=== PATIENT | female | born 1955 | race Caucasian/White ===

== ENCOUNTER 2017-06-11 12:32 | Inpatient (IN) | payer OTHER ==
[2017-06-11] MEDS ORDERED: fentaNYL Inj 100 MCG/2 ML VIAL IVP ONE (13:08)
[2017-06-11] MEDS ORDERED: Sodium Chloride 0.9% 1,000 ML PRIMARY IV ONE (13:08)
[2017-06-11] MEDS ORDERED: NORMAL SALINE 10 ML SYRINGE FLUSH IVP PRN ×4 (13:08→21:27)
[2017-06-11] MEDS ORDERED: ONDANSETRON 4 MG/2 ML VIAL IVP ONE (13:08)
--- NOTE | 2017-06-11 13:18 | PDOC ---
Abdomen/Flank HPI - General Chief Complaint: Headache Stated Complaint: SEVERE HEADACHE/VOMITING Date Seen by Provider: 06/11/17 Time Seen by Provider: 13:02 - History of Present Illness Initial Comments: This is a very nice 61-year-old woman who just moved to [place] within the last week to live with her best friend. She was from the [facility] and had substantial medical care there. She currently was hospitalized about 2 weeks ago with an episode of nausea and vomiting which she associated to some bad chicken that she ate. She felt that she had gotten better after that episode but then again today started to have substantial nausea and vomiting which she classifies as bilious. She has chronic recurrent migraines feel that she has a migraine currently does not feel that her current headache is any different than her normal migraines. She states that she also feels a little bit of low abdominal pain which is consistent with a previous episode of diverticulitis that she's had. She also states that she had a colonoscopy about 7 years ago had polyps removed at that time was supposed to have a colonoscopy at 5 years and did not she also has noticed a little bit of rectal bleeding over last couple weeks but this was very scant and she has not had any workup in regards to that. She denies any weight loss or night sweats fever or chills she has also had a cholecystectomy and history of hepatitis C that was fully treated. She denies ever having history of small bowel obstructions. She had an upper endoscopy in the past and some sort of esophageal procedure which she calls a "wrap" but denies any sort of Gregorio fundoplication or abdominal procedure. In regards to her headache she has chronic and frequent migraine headache she states this migraine headache is similar to her previous ones she apparently had a head scan of some sort she believes likely an MRI that did show vertebral artery stenosis or limited flow which may be causing some of her headaches though she has never seen a neurologist for this and was told there is nothing that needed to be done at the time she had her scan - Patient Home Medications Home Medications: Home Medications Cetirizine HCl [Zyrtec] 10 mg PO DAILY 01/19/16 Cholecalciferol (Vitamin D3) [Vitamin D3] 1,000 unit PO DAILY 01/19/16 Fluoxetine HCl [Prozac] 40 mg PO DAILY 01/19/16 Fluticasone/Salmeterol [Advair 500-50 Diskus] 1 each IH DAILY 01/19/16 Gabapentin 900 mg PO BID 01/19/16 Ibuprofen [Motrin Tab] 400 mg PO TID PRN 01/19/16 Levothyroxine Sodium [Synthroid Tab] 88 mcg PO DAILY 01/19/16 [place] Carbonate 300 mg PO QID 01/19/16 Sumatriptan [Imitrex] 20 mg NS PRN PRN 01/19/16 Vitamin E 400 unit PO DAILY 01/19/16 Morphine Sulfate [Morphine Sulfate ER] 15 mg PO TID 06/11/17 - Patient Allergies Allergies/Adverse Reactions: Allergies Allergy/AdvReac Type Severity Reaction Status Date / Time No Known Allergies Allergy Verified 06/11/17 13:07 Past Medical History - heen HEENT History: Denies History Cardiovascular History: Hypertension Respiratory History: COPD, Emphysema Gastrointestinal History: GERD Additional Gastrointestinal History: SURGICAL REPAIR OF ESOPHAGUS FROM DAMAGE FROM REFLUX Genitourinary History: Denies History Endocrine History: Hypothyroidism Musculoskeletal History: Arthritis Prosthesis or Implant: No Additional 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 Neurological History: Migraines Blood Disorders: Denies History Psychiatric History: Bi Polar Disorder, Anxiety Disorders Cancer History: Denies History History of MDRO: No Alcohol Use: None Substance Use Type: None Previous Surgical History: Yes Type / Date of Surgery: GB, ESOPHAGEAL WRAP, REMOVAL OF GROWTH ON VOCAL CORDS Anesthesia Reactions: No Significant Family History: No pertinent family hx Past Medical History Reviewed: Reviewed - No Changes ROS Constitution: REPORTS: Denies Symptoms Cardiovascular: REPORTS: Denies Cardiac Symptoms Respiratory: REPORTS: Denies Resp Symptoms Gastrointestinal: REPORTS: Abdominal Pain, Nausea, Vomitting Genitourinary: REPORTS: Denies Symptoms Abdominal/Flank Pain PE - General Appearance General Appearance: POSITIVE: Alert, Cooperative, No Acute Distress - Neck Neck: POSITIVE: Normal Inspection - Respiratory Respiratory: POSITIVE: No Respiratory Distress, Breath Sounds Normal - Cardiovascular Cardiovascular: POSITIVE: Regular Rate and Rhythm, Heart Sounds Normal - Abdomen Additional Abdominal Details: Vague low abdominal tenderness bowel sounds are sluggish but present she has some diffuse tenderness as well. - Back Back: POSITIVE: Normal Inspection - Skin Skin: POSITIVE: Intact - Neurological Neurological: POSITIVE: Affect Apporpriate - Psychological Psychiatric: POSITIVE: Affect Appropriate, Mood Appropriate Abdomen Progress - Results Reviewed by me Xrays/CTs/US Reviewed by me: Yes Lab Results Reviewed: Yes Lab Results:: Laboratory Results 06/11/17 06/11/17 Range/Units 13:08 13:45 WBC 7.41 (4.8-10.8) 10^3/uL RBC 4.99 (4.20-5.40) 10^6/uL Hgb 15.2 (12.0-16.0) g/dL Hct 44.5 (37.0-47.0) % MCV 89.2 (81-99) FL MCH 30.5 (27-31) PG MCHC 34.2 (33-37) g/dL RDW Std Deviation 41.5 (39-50) fL RDW Coeff of Jaci 12.8 (11.5-14.5) % Plt Count 242 (140-350) 10*3/uL MPV 10.1 (7.4-12.2) FL Immature Gran % (Auto) 0.1 (0-5) % Neut % (Auto) 71.3 (50-80) % Lymph % (Auto) 22.8 (10-50) % [place] % (Auto) 5.0 (5-15) % Eos % (Auto) 0.4 (0-8) % Baso % (Auto) 0.4 (0-1) % Immature Gran # (Auto) 0.01 10*3/UL Neut # (Auto) 5.28 10*3/UL Lymph # (Auto) 1.69 10*3/uL [place] # (Auto) 0.37 (0.3-0.8) 10*3/UL Eos # (Auto) 0.03 10*3/UL Baso # (Auto) 0.03 10*3/UL WBC Morphology Comment Normal morphology (NORM) Plt Morphology Comment Normal morphology (NORM) RBC Morph Comment Normal morphology (NORM) Sodium 142 (135-145) meq/L Potassium 3.8 (3.8-5.2) meq/L Chloride 106 (98-112) meq/L Carbon Dioxide 24 (23-33) meq/L Anion Gap 12 (5-20) BUN 13 (7-22) mg/dL Creatinine 0.7 (0.50-1.20) mg/dL Estimated GFR > 60 (>60 ml/min/1.73m(2)) BUN/Creatinine Ratio 18.57 (6-20) Glucose 122 H (78-110) mg/dL Calculated Osmolality 294.0 H (267-292) mOsm/kg Calcium 9.4 (8.7-10.7) mg/dL Total Bilirubin 0.5 (0.3-1.2) mg/dL AST 29 (8-39) IU/L ALT 72 H (9-52) IU/L Alkaline Phosphatase 78 (38-126) IU/L Total Protein 7.6 (6.1-8.0) g/dL Albumin 4.4 (3.5-4.8) g/dL Globulin 3.2 (2.50-4.10) g/dL Albumin/Globulin Ratio 1.30 (1.3-2.0) mg/g Triglycerides 155 (44-200) mg/dL Lipase 657 H (23-300) IU/L Ur Collection Type Clean catch urine Urine Color Yellow Urine Clarity Turbid (CLEAR) Urine pH 5.5 (5.0-8.5) Ur Specific [place] 1.025 (1.005-1.030) Urine Protein Negative (NEG) mg/dl Urine Glucose (UA) Negative (NEG) mg/dL Urine Ketones Negative (NEG) Urine Occult Blood Small H (NEG) Urine Nitrate Negative (NEG) Urine Bilirubin Negative (NEG) Urine Urobilinogen 0.2 (0.2) EU/dL Ur Leukocyte Esterase Trace (NEG) Urine RBC 0 (NONE) /hpf Urine WBC 0-2 (NONE) Ur Squamous Epith Cells Few (NONE) Ur Renal Epithelial Cell None (NONE) Urine Crystals Many Urine Bacteria Moderate (NONE) Urine Casts None (NONE) Urine Mucus None (NONE) Urine Trichomonas None (NONE) Urine Yeast None (NONE) Ur Culture Indicated? Culture not set - Patient's Progress MDM / ED Course: Patient's labs show an elevated lipase and a mildly elevated ALTs. Her abdominal films show stool throughout most of the colon in size constipation no air-fluid levels or dilated bowel or free air or other concerning features. Ultimately her exam with epigastric pain and elevated lipase is concerning for pancreatitis. I've discussed her case with hospitalist who is agreed to admit her to the hospital. We'll make her nothing by mouth give her pain medication as needed and obtain CT scan of her abdomen and pelvis to evaluate her pancreatitis for complications or other sources of problem. Patient Care Time - Estimated PCT Patient Care Time (In Minutes): 40 Vital Signs - Recent Vital Signs Vital Signs: Vital Signs (Last 8 hours) Temp Pulse Resp BP Pulse Ox 06/11/17 12:32 96.3 F L 96 22 124/80 92 - VS Reviewed Vital Signs Reviewed: Yes (vitals are currently good) Discharge Clinical Impression: Pancreatitis, acute Qualifiers: Pancreatitis type: other Acute pancreatitis complication: unspecified Qualifier Code: (K85.80) Other acute pancreatitis without necrosis or infection Constipation Qualifiers: Constipation type: other constipation type Qualifier Code: (K59.09) Other constipation Discharge Disposition: Admit to Inpatient Condition: Stable Date Decision to Admit to Inpatient: 06/11/17 Time Decision to Admit to Inpatient: 15:10
[2017-06-11 13:56] LABS: BASOPHILS % (AUTO) 0.4 % (0-1); EOSINOPHILS # (AUTO) 0.03 10*3/UL; EOSINOPHILS % (AUTO) 0.4 % (0-8); HEMATOCRIT 44.5 % (37.0-47.0); HEMOGLOBIN 15.2 g/dL (12.0-16.0); LYMPHOCYTES # (AUTO) 1.69 10*3/uL; MEAN CORPUSCULAR HEMOGLOBIN 30.5 PG (27-31); MEAN CORPUSCULAR HGB CONC 34.2 g/dL (33-37); MEAN CORPUSCULAR VOLUME 89.2 FL (81-99); MEAN PLATELET VOLUME 10.1 FL (7.4-12.2); MONOCYTES # (AUTO) 0.37 10*3/UL (0.3-0.8); NEUTROPHILS # (AUTO) 5.28 10*3/UL; NEUTROPHILS % (AUTO) 71.3 % (50-80); RED BLOOD COUNT 4.99 10^6/uL (4.20-5.40)
[2017-06-11 13:57] LABS: BASOPHILS # (AUTO) 0.03 10*3/UL; PLATELET MORPHOLOGY COMMENT NORMAL MORPHOLOGY (NORM); RBC MORPHOLOGY COMMENT NORMAL MORPHOLOGY (NORM); WBC MORPHOLOGY COMMENT NORMAL MORPHOLOGY (NORM)
[2017-06-11 14:00] LABS: BLOOD UREA NITROGEN 13 mg/dL (7-22); BUN/CREATININE RATIO 18.57 (6-20); CALCIUM 9.4 mg/dL (8.7-10.7); EST GLOMERULAR FILTRATION > 60 (>60 ml/min/1.73m(2)); SERUM ALBUMIN 4.4 g/dL (3.5-4.8)
[2017-06-11 14:07] LABS: CLARITY,URINE TURBID (CLEAR); COLOR,URINE YELLOW; GLUCOSE, URINE (UA) NEGATIVE (NEG); PH,URINE 5.5 (5.0-8.5); PROTEIN,URINE NEGATIVE (NEG); URINE SAMPLE TYPE CLEAN CATCH URINE
[2017-06-11 14:08] LABS: BACTERIA,URINE MODERATE; BILIRUBIN,URINE NEGATIVE (NEG); NITRATE,URINE NEGATIVE (NEG); OCCULT BLOOD,URINE SMALL (NEG); RBC,URINE 0 /hpf; SQUAMOUS EPITHELIAL CELL,UR FEW; URINE CRYSTALS MANY; UROBILINOGEN,URINE 0.2 EU/dL (0.2); WBC,URINE 0-2
[2017-06-11] MEDS: Lactated Ringers 1,000 ML PRIMARY IV ONE ×2 (15:57→19:20)
[2017-06-11] MEDS ORDERED: ONDANSETRON 4 MG/2 ML VIAL IVP PRN (16:24)
[2017-06-11] MEDS ORDERED: MORPHINE SULFATE 4 MG/1 ML IVP PRN (16:24)
--- NOTE | 2017-06-11 17:20 | DI ---
CT ABD W/CN AND PELVIS W/CN,06/11/2017 3:03 PM: Clinical History: Abdominal pain and elevated lipase. Previous Exam: None at this facility. Findings: Multiple helically acquired CT images are obtained through the abdomen and pelvis following the intra venous administration of 75 cc of Isovue 300, and demonstrate clear lung bases. The liver, spleen, adrenals, kidneys and pancreas are unremarkable. The patient is status post cholecystectomy. There is a normal appendix. There is no mesenteric or retroperitoneal lymphadenopathy. There is no ev idence of pseudocyst or abscess in the region of the pancreas. Impression: No acute intra-abdominal pathology.
[2017-06-11] MEDS ORDERED: LORazepam 2 MG/1 ML VIAL IVP ONE (18:00)
[2017-06-11] MEDS ORDERED: DEXAMETHASONE PF 10 MG/1 ML VIAL IV ONE (18:00)
[2017-06-11] MEDS ORDERED: Magnesium Sulfate 2gm (Premix) 2 GM in Premix 1 BAG IV ONE (18:00)
[2017-06-11] MEDS ORDERED: diphenhydrAMINE 50 MG/1 ML VIAL IVP ONE (18:00)
[2017-06-11] MEDS ORDERED: Prochlorperazine Edisylate Inj 5 MG in Sodium Chloride 0.9% 500 ML IV ONE (18:00)
[2017-06-11] MEDS ORDERED: KETOROLAC 15 MG/1 ML VIAL IVP ONE (18:00)
[2017-06-11] MEDS ORDERED: NICOTINE 21 MG /DAY PATCH TRANSDERM SCH (19:00)
[2017-06-11] MEDS ORDERED: Prochlorperazine Edisylate Inj 10mg/2ml vial ONE (19:12)
[2017-06-11] MEDS: Sodium Chloride 0.9% 1,000 ML PRIMARY IV SCH ×2 (19:30→20:46)
[2017-06-11] MEDS ORDERED: Prochlorperazine Edisylate Inj 10mg/2ml vial IVP ONE (20:49)
[2017-06-11] MEDS ORDERED: SUMATRIPTAN NS PRN (21:23)
[2017-06-11] MEDS ORDERED: CALCIUM CARBONATE 500 MG (TUMS) CHEWABLE TABLET PO PRN (21:27)
[2017-06-11] MEDS ORDERED: LIDOCAINE W/ SODIUM BICARB 0.5 ML SYR SUBD PRN (21:27)
[2017-06-11] MEDS ORDERED: ACETAMINOPHEN 325 MG TABLET PO PRN (21:27)
--- NOTE | 2017-06-11 21:43 | PDOC ---
History and Physical - History of Present Illness Date and Time of Service: 06/11/2017, 2139 Chief Complaint: Nausea and vomiting and headache History of Present Illness: This very pleasant 61-year-old female that states she recently moved here from [place], although I do see she was here in 2016 with a couple of emergency room visits in January of that year. That being stated, the patient came in complaining of nausea and vomiting of acute onset last night. She stated she had similar symptoms 2 weeks ago and attributed these symptoms to a migraine headache. She states that she thinks she had this time and she developed a headache. She did not have any abdominal pain, but her lipase was found to be elevated. She was admitted with the thought of either migraine headache or pancreatitis and I'm seeing her at this time for admission. The patient states that she's had about a 10 year history of migraine headaches but describes this as "the worst headache of my life". She denied any trauma. She denied any recent alcohol use and states she had a beer or sometime in the last week and that is all. She states that she is normally on Imitrex and pain medications for her migraines and no seem to control her headaches fairly well. With the intractable nausea and vomiting and headache, she came in for evaluation. Again as mentioned, the lipase was elevated and the patient had a CT scan of the abdomen and pelvis that was negative for pancreatitis. She states she feels much better after anti-medics and IV fluids here today. She also did receive a dose of Toradol. There were no other exacerbating factors. She does states she is hungry and she would like to eat. The patient does note that 2 weeks ago or so her morphine was adjusted by her pain medication doctor and it is not clear whether that caused the nausea or vomiting to worsen. Past Medical History Medical History: 1. Migraine headaches 10 years. 2. Colon polyps with colonoscopy last done around 7 years ago per history. 3. Bipolar disorder/ personality disorder/anxiety disorder. 4. Tobacco abuse. 5. COPD with no oxygen dependency. 6. Hypothyroidism. 7. Chronic pain syndrome with fibromyalgia. Surgical History: 1. Appendectomy. 2. Benign vocal cord tumor removed. 3. Benign skin lesions on back removed. 4. Colonoscopy as mentioned about 7 years ago positive for polyps. 5. Probable Gregorio fundoplication as she states she had a "wrap" for her stomach Pertinent Family History: She states her family history is significant for colon cancer in her father as well as myocardial infarctions and diabetes in his situation as well. Past Social History: The patient smokes daily, drinks sparingly, is on disability. She has 3 children that are described as healthy. She states she recently moved to the [facility] from [place]. Tobacco Use: Current Every Day Smoker Substance Use Type: None Alcohol Use: Rarely Medication / Allergies Home Medications: Home Medications Medication Instructions Recorded Confirmed Type Cetirizine HCl [Zyrtec] 10 mg PO DAILY 01/19/16 06/11/17 History Cholecalciferol (Vitamin D3) 1,000 unit PO DAILY 01/19/16 06/11/17 History [Vitamin D3] Fluoxetine HCl [Prozac] 40 mg PO DAILY 01/19/16 06/11/17 History Fluticasone/Salmeterol [Advair 1 each IH DAILY 01/19/16 06/11/17 History 500-50 Diskus] Gabapentin 900 mg PO BID 01/19/16 06/11/17 History Ibuprofen [Motrin Tab] 400 mg PO TID PRN 01/19/16 06/11/17 History Levothyroxine Sodium [Synthroid 88 mcg PO DAILY 01/19/16 06/11/17 History Tab] [place] Carbonate 300 mg PO QID 01/19/16 06/11/17 History Sumatriptan [Imitrex] 20 mg NS PRN PRN 01/19/16 06/11/17 History Vitamin E 400 unit PO DAILY 01/19/16 06/11/17 History Morphine Sulfate [Morphine Sulfate 15 mg PO TID 06/11/17 06/11/17 History ER] Allergies/Adverse Reactions: Allergies Allergy/AdvReac Type Severity Reaction Status Date / Time pregabalin [From Lyrica] AdvReac NOT Verified 06/11/17 19:59 APPLICABLE Review of Systems - Review of Systems All Systems: Reviewed & No Additional Complaints Except as Stated (I did a 12 point review systems and it was negative except as stated below or as per history of present illness:) - Respiratory Respiratory: DENIES: Negative System Review, Cough, Sputum, Dyspnea At Rest, Dyspnea with Exertion, Pleuritic Pain, Hemoptysis, Wheezing, Other, See HPI - Cardiovascular Cardiovascular: DENIES: Negative System Review, Chest Pain, Edema, Syncope, Palpitations, Orthopnea, Paroxysmal Nocturnal Dyspnea, Other, See HPI - Gastrointestinal Gastrointestinal / Abdominal: REPORTS: Other (Awaiting repeat colonoscopy arrangements. Does not have a primary care doctor here in town.), See HPI - Musculoskeletal Musculoskeletal: REPORTS: Joint Pain - Shoulders (Right shoulder), Other ( Random joint tenderness) - Neurological Neurologic: REPORTS: Headache, Other (Migraine headaches, chronic) - Psychiatric Psychiatric: REPORTS: Other (Denies suicidal ideation or homicidal ideation.) Exam - Vitals Vital Signs: Vital Signs Temperature 97.7 F Temperature Source Temporal Artery Scan Pulse Rate [Pulse Oximeter] 83 Pulse Rate 88 Respiratory Rate 16 Blood Pressure [Left Arm] 140/69 Blood Pressure 130/86 Pulse Ox 96 Oxygen Delivery Method Room Air Height 5 ft 3 in Weight 155 lb 3.2 oz - General General Appearance: POSITIVE: No Acute Distress, Cooperative - Head Head Exam: POSITIVE: Normal Inspection, Normocephalic, Atraumatic - Eye Eye Exam: POSITIVE: No Scleral Icterus - ENT ENT Exam: POSITIVE: Mucous Membranes Moist Additonal ENT Exam Details: No dentition. - Neck Neck Exam: POSITIVE: Normal Inspection, No Tenderness, No Thyromegaly - Respiratory Respiratory Exam: POSITIVE: Clear to Auscultation - Bilaterally, Breathing Non Labored, Normal to Percussion and Palpation - Cardiovascular Cardiovascular Exam: POSITIVE: RRR, No Murmur, No Clicks, No Gallops, No Rubs, No JVD - GI/Abdominal GI/Abdominal Exam: POSITIVE: Normal Bowel Sounds, Non Tender, Non Distended, Soft - Rectal Rectal Exam: POSITIVE: Deferred - External Exam: POSITIVE: Deferred Exam: POSITIVE: Deferred - Extremities Extremities Exam: POSITIVE: Full ROM, No Clubbing Present, No Edema Present, No Cyanosis Present - Back Back Exam: POSITIVE: Normal Inspection, No CVA Tenderness - Neurological Neurological Exam: POSITIVE: Alert, Oriented x 3, No Facial Droop, Speech Intact / Clear, Moves All Extremities Equally - Psychiatric Psychiatric Exam: POSITIVE: Normal Affect, Normal Mood - Integumentary Integumentary Exam: POSITIVE: Normal Color, Warm, Dry, Intact Results - Labs CBC and BMP: 06/11/17 13:45 06/11/17 13:45 Labs - Last 24 Hours: Laboratory Results 07/26/17 07/26/17 Range/Units 13:08 13:45 WBC 7.41 (4.8-10.8) 10^3/uL RBC 4.99 (4.20-5.40) 10^6/uL Hgb 15.2 (12.0-16.0) g/dL Hct 44.5 (37.0-47.0) % MCV 89.2 (81-99) FL MCH 30.5 (27-31) PG MCHC 34.2 (33-37) g/dL RDW Std Deviation 41.5 (39-50) fL RDW Coeff of Jaci 12.8 (11.5-14.5) % Plt Count 242 (140-350) 10*3/uL MPV 10.1 (7.4-12.2) FL Immature Gran % (Auto) 0.1 (0-5) % Neut % (Auto) 71.3 (50-80) % Lymph % (Auto) 22.8 (10-50) % [place] % (Auto) 5.0 (5-15) % Eos % (Auto) 0.4 (0-8) % Baso % (Auto) 0.4 (0-1) % Immature Gran # (Auto) 0.01 10*3/UL Neut # (Auto) 5.28 10*3/UL Lymph # (Auto) 1.69 10*3/uL [place] # (Auto) 0.37 (0.3-0.8) 10*3/UL Eos # (Auto) 0.03 10*3/UL Baso # (Auto) 0.03 10*3/UL WBC Morphology Comment Normal morphology (NORM) Plt Morphology Comment Normal morphology (NORM) RBC Morph Comment Normal morphology (NORM) Sodium 142 (135-145) meq/L Potassium 3.8 (3.8-5.2) meq/L Chloride 106 (98-112) meq/L Carbon Dioxide 24 (23-33) meq/L Anion Gap 12 (5-20) BUN 13 (7-22) mg/dL Creatinine 0.7 (0.50-1.20) mg/dL Estimated GFR > 60 (>60 ml/min/1.73m(2)) BUN/Creatinine Ratio 18.57 (6-20) Glucose 122 H (78-110) mg/dL Calculated Osmolality 294.0 H (267-292) mOsm/kg Calcium 9.4 (8.7-10.7) mg/dL Magnesium 1.8 (1.6-2.4) mg/dL Total Bilirubin 0.5 (0.3-1.2) mg/dL GGT 83 H (8-78) IU/L AST 29 (8-39) IU/L ALT 72 H (9-52) IU/L Alkaline Phosphatase 78 (38-126) IU/L Total Protein 7.6 (6.1-8.0) g/dL Albumin 4.4 (3.5-4.8) g/dL Globulin 3.2 (2.50-4.10) g/dL Albumin/Globulin Ratio 1.30 (1.3-2.0) mg/g Triglycerides 155 (44-200) mg/dL Lipase 657 H (23-300) IU/L Ur Collection Type Clean catch urine Urine Color Yellow Urine Clarity Turbid (CLEAR) Urine pH 5.5 (5.0-8.5) Ur Specific [place] 1.025 (1.005-1.030) Urine Protein Negative (NEG) mg/dl Urine Glucose (UA) Negative (NEG) mg/dL Urine Ketones Negative (NEG) Urine Occult Blood Small H (NEG) Urine Nitrate Negative (NEG) Urine Bilirubin Negative (NEG) Urine Urobilinogen 0.2 (0.2) EU/dL Ur Leukocyte Esterase Trace (NEG) Urine RBC 0 (NONE) /hpf Urine WBC 0-2 (NONE) Ur Squamous Epith Cells Few (NONE) Ur Renal Epithelial Cell None (NONE) Urine Crystals Many Urine Bacteria Moderate (NONE) Urine Casts None (NONE) Urine Mucus None (NONE) Urine Trichomonas None (NONE) Urine Yeast None (NONE) Ur Culture Indicated? Culture not set Serum Alcohol < 10 (0-10) mg/dL - Imaging Status: Image Reviewed by Me (Acute abdominal series is significant for stool throughout the colon and chest x-ray is negative for any pneumonia. It is consistent with COPD. I personally reviewed these images. Abdominal CT scan was read as normal by the radiologist.) Assessment and Plan - Patient Problems (1) Migraine Current Visit: Yes Status: Acute (2) Chronic pain syndrome Current Visit: Yes Status: Chronic (3) Fibromyalgia Current Visit: Yes Status: Chronic (4) COPD (chronic obstructive pulmonary disease) Current Visit: Yes Status: Chronic Qualifiers: COPD type: emphysema Emphysema type: panlobular Qualified Description: Panlobular emphysema Qualifier Code(s): (J43.1) Panlobular emphysema (5) Hypothyroidism Current Visit: Yes Status: Acute Qualifiers: Hypothyroidism type: acquired Qualified Description: Acquired hypothyroidism Qualifier Code(s): (E03.9) Hypothyroidism, unspecified - Assessment / Plan Additional Assessment/Plan Details: I'll admit the patient for observation. Antiemetics, IV fluids, sumatriptan, and pain medications will be written for. Start clear liquid diet and advanced as tolerated to regular diet by morning. Check labs in a.m. Overall, I think the lipase is probably elevated in the setting of dehydration. I will go ahead and check a head CT scan given the complaint of worst headache of life. It is reassuring in that sense to know that the patient is a chronic migraines. I read through the emergency room documentation and the patient may have had a prior MRI scan was some sort of stenosis documented although I don't much about that. Symptomatically, the patient has nothing to suggest stroke or TIA or other diagnosis that would warrant further imaging. Lifestyle education and tobacco cessation education will be administered as patient would likely benefit from quitting smoking given her stated history. Patient will need help decision to primary care doctor and will need follow-up with either Dr. Aniket Vance for a colonoscopy consideration. At arrange a consultation as an outpatient. I discussed above plan with the patient and she agreed.
[2017-06-11] MEDS: GABAPENTIN 300 MG CAPSULE PO SCH (23:50)
[2017-06-11] MEDS: CHOLECALCIFEROL 1000 IU TABLET PO SCH (23:50)
[2017-06-11] MEDS: MORPHINE SULFATE 15 MG PO SCH (23:50)
--- NOTE | 2017-06-12 02:01 | DI ---
HISTORY: Severe migraine headache. COMPARISON: None available. TECHNIQUE: A noncontrast CT was performed. FINDINGS: There is no midline shift or mass effect. The CSF spaces to include the ventricles, ciste rns and cerebral sulci are normal in size and shape and are age appropriate. There are no pathologic fluid collections or evidence of acute intracranial hemorrhage. The sun-white differentiation is preserved without CT findings to suggest a transcortical infarction . No calvarial fractures are seen. There is mild sphenoid sinus disease. No significant mastoid air c ell fluid. The imaged soft tissues of the neck and orbits are unremarkable. IMPRESSION: 1. No acute intracranial hemorrhage, midline shift or mass effect.
[2017-06-12] MEDS: Sodium Chloride 0.9% 1,000 ML PRIMARY IV SCH ×2 (05:12→14:28)
[2017-06-12] MEDS ORDERED: LEVOTHYROXINE 88 MCG TABLET PO SCH (05:30)
[2017-06-12 06:36] VITALS: RESP 18
[2017-06-12 06:46] LABS: FREE T4 (FREE THYROXINE) 0.89 ng/dL (0.93-1.71)
[2017-06-12 07:00] LABS: HEMATOCRIT 42.1 % (37.0-47.0); HEMOGLOBIN 13.9 g/dL (12.0-16.0); MEAN CORPUSCULAR VOLUME 90.9 FL (81-99); RED BLOOD COUNT 4.63 10^6/uL (4.20-5.40)
[2017-06-12 07:01] LABS: BASOPHILS # (AUTO) 0 10*3/UL; BASOPHILS % (AUTO) 0 % (0-1); EOSINOPHILS # (AUTO) 0 10*3/UL; EOSINOPHILS % (AUTO) 0 % (0-8); LYMPHOCYTES # (AUTO) 1.08 10*3/uL; MEAN PLATELET VOLUME 10.3 FL (7.4-12.2); MONOCYTES # (AUTO) 0.08 10*3/UL (0.3-0.8); NEUTROPHILS # (AUTO) 6.65 10*3/UL; NEUTROPHILS % (AUTO) 84.9 % (50-80); PLATELET MORPHOLOGY COMMENT NORMAL MORPHOLOGY (NORM); RBC MORPHOLOGY COMMENT NORMAL MORPHOLOGY (NORM); WBC MORPHOLOGY COMMENT SEE COMMENTS (NORM)
[2017-06-12] MEDS ORDERED: FLUoxetine 20 MG CAPSULE PO SCH (09:00)
[2017-06-12] MEDS ORDERED: FLUTICASONE/SALMETEROL 500/50 UD INHALER INH SCH ×3 (09:00→19:00)
[2017-06-12] MEDS: LITHIUM CARBONATE 300 MG CAPSULE PO SCH ×2 (09:52→12:55)
[2017-06-12] MEDS: CHOLECALCIFEROL 1000 IU TABLET PO SCH (09:52)
[2017-06-12] MEDS: GABAPENTIN 300 MG CAPSULE PO SCH (09:52)
[2017-06-12] MEDS: MORPHINE SULFATE 15 MG PO SCH (09:58)
[2017-06-12 12:51] VITALS: TEMP 97.8
[2017-06-12] MEDS ORDERED: MORPHINE SULFATE 15 MG PO SCH (14:00)
--- NOTE | 2017-06-12 14:44 | DCSUMMARY ---
Hospitalization Summary Admit Date: 06/11/17 Discharge Date: 06/12/17 Primary Diagnosis:: migraine headache with nausea and vomiting Hospital Course: This very pleasant 61-year-old female came in with nausea and vomiting over the day and half or so and was admitted on the presumption that she could have underlying pancreatitis versus migraine headaches. She had an elevated lipase, and overall I think that was probably related to dehydration in the setting of vomiting. Her lipase was normal today. Her headache has resolved. She is ready to go home. She denies any shortness of breath. She states that she is going to work on quitting smoking. She has no nausea or vomiting today. Assessment and Plan: 1. As per discharge assessments noted 2. Disposition: Patient is discharged home. 3. Condition on discharge, stable and improved. 4. Diet: regular diet 5. Activities: resume normal activities, but quit smoking 6. Follow-Up: 1. Follow-up with Dr. Henley has been arranged 2. Follow-up with Dr. Vance for screening colonoscopy. 7. Medications at the Time of Discharge: Home Medications Medication Instructions Recorded Confirmed Type Cetirizine HCl [Zyrtec] 10 mg PO DAILY 01/19/16 06/11/17 History Cholecalciferol (Vitamin D3) 1,000 unit PO DAILY 01/19/16 06/11/17 History [Vitamin D3] Fluoxetine HCl [Prozac] 40 mg PO DAILY 01/19/16 06/11/17 History Fluticasone/Salmeterol [Advair 1 each IH DAILY 01/19/16 06/11/17 History 500-50 Diskus] Gabapentin 900 mg PO BID 01/19/16 06/11/17 History Ibuprofen [Motrin] 400 mg PO TID PRN 01/19/16 06/11/17 History Levothyroxine Sodium [Synthroid] 88 mcg PO DAILY 01/19/16 06/11/17 History Baylis Carbonate 300 mg PO QID 01/19/16 06/11/17 History Sumatriptan [Imitrex] 20 mg NS PRN PRN 01/19/16 06/11/17 History Vitamin E 400 unit PO DAILY 01/19/16 06/11/17 History Morphine Sulfate [Morphine Sulfate 15 mg PO TID 06/11/17 06/11/17 History ER] The patient should take 81 mg of aspirin daily. 8. Time, care, counseling and coordination of care for this discharge is greater than 30 minutes. Exam - Vitals Vital Signs: Vital Signs Temperature 97.8 F Temperature Source Temporal Artery Scan Pulse Rate [Pulse Oximeter] 114 Pulse Rate 88 Respiratory Rate 18 Blood Pressure [Left Arm] 115/72 Blood Pressure 130/86 Pulse Ox 92 Oxygen Flow Rate 2 Oxygen Delivery Method Room Air Height 5 ft 3 in Weight 155 lb 3.2 oz - General General Appearance: POSITIVE: No Acute Distress, Cooperative - Eye Eye Exam: POSITIVE: No Scleral Icterus - Respiratory Respiratory Exam: POSITIVE: Clear to Auscultation - Bilaterally, Breathing Non Labored - Cardiovascular Cardiovascular Exam: POSITIVE: RRR, No Murmur, No Clicks, No Gallops, No Rubs, No JVD - GI/Abdominal GI/Abdominal Exam: POSITIVE: Normal Bowel Sounds, Non Tender, Non Distended, Soft - Extremities Extremities Exam: POSITIVE: No Edema Present, No Cyanosis Present - Neurological Neurological Exam: POSITIVE: Alert, Oriented x 3, No Facial Droop, Speech Intact / Clear, Moves All Extremities Equally Data Perinent Studies: Laboratory Results 06/11/17 06/11/17 06/12/17 Range/Units 13:08 13:45 06:01 WBC 7.41 7.83 (4.8-10.8) 10^3/uL RBC 4.99 4.63 (4.20-5.40) 10^6/uL Hgb 15.2 13.9 (12.0-16.0) g/dL Hct 44.5 42.1 (37.0-47.0) % MCV 89.2 90.9 (81-99) FL MCH 30.5 30.0 (27-31) PG MCHC 34.2 33.0 (33-37) g/dL RDW Std Deviation 41.5 41.7 (39-50) fL RDW Coeff of Jaci 12.8 12.7 (11.5-14.5) % Plt Count 242 209 (140-350) 10*3/uL MPV 10.1 10.3 (7.4-12.2) FL Immature Gran % (Auto) 0.1 0.3 (0-5) % Neut % (Auto) 71.3 84.9 H (50-80) % Lymph % (Auto) 22.8 13.8 (10-50) % [place] % (Auto) 5.0 1.0 L (5-15) % Eos % (Auto) 0.4 0 (0-8) % Baso % (Auto) 0.4 0 (0-1) % Immature Gran # (Auto) 0.01 0.02 10*3/UL Neut # (Auto) 5.28 6.65 10*3/UL Lymph # (Auto) 1.69 1.08 10*3/uL [place] # (Auto) 0.37 0.08 L (0.3-0.8) 10*3/UL Eos # (Auto) 0.03 0 10*3/UL Baso # (Auto) 0.03 0 10*3/UL WBC Morphology Comment Normal morphology See comments (NORM) Plt Morphology Comment Normal morphology Normal morphology (NORM) RBC Morph Comment Normal morphology Normal morphology (NORM) Sodium 142 (135-145) meq/L Potassium 3.8 (3.8-5.2) meq/L Chloride 106 (98-112) meq/L Carbon Dioxide 24 (23-33) meq/L Anion Gap 12 (5-20) BUN 13 (7-22) mg/dL Creatinine 0.7 (0.50-1.20) mg/dL Estimated GFR > 60 (>60 ml/min/1.73m(2)) BUN/Creatinine Ratio 18.57 (6-20) Glucose 122 H (78-110) mg/dL Calculated Osmolality 294.0 H (267-292) mOsm/kg Calcium 9.4 (8.7-10.7) mg/dL Magnesium 1.8 (1.6-2.4) mg/dL Total Bilirubin 0.5 (0.3-1.2) mg/dL GGT 83 H (8-78) IU/L AST 29 (8-39) IU/L ALT 72 H (9-52) IU/L Alkaline Phosphatase 78 (38-126) IU/L Total Protein 7.6 (6.1-8.0) g/dL Albumin 4.4 (3.5-4.8) g/dL Globulin 3.2 (2.50-4.10) g/dL Albumin/Globulin Ratio 1.30 (1.3-2.0) mg/g Triglycerides 155 (44-200) mg/dL Lipase 657 H 90 (23-300) IU/L TSH 1.85 (0.2700-4.2000) uIU/mL Free T4 0.89 L (0.93-1.71) ng/dL Ur Collection Type Clean catch urine Urine Color Yellow Urine Clarity Turbid (CLEAR) Urine pH 5.5 (5.0-8.5) Ur Specific [place] 1.025 (1.005-1.030) Urine Protein Negative (NEG) mg/dl Urine Glucose (UA) Negative (NEG) mg/dL Urine Ketones Negative (NEG) Urine Occult Blood Small H (NEG) Urine Nitrate Negative (NEG) Urine Bilirubin Negative (NEG) Urine Urobilinogen 0.2 (0.2) EU/dL Ur Leukocyte Esterase Trace (NEG) Urine RBC 0 (NONE) /hpf Urine WBC 0-2 (NONE) Ur Squamous Epith Cells Few (NONE) Ur Renal Epithelial Cell None (NONE) Urine Crystals Many Urine Bacteria Moderate (NONE) Urine Casts None (NONE) Urine Mucus None (NONE) Urine Trichomonas None (NONE) Urine Yeast None (NONE) Ur Culture Indicated? Culture not set Serum Alcohol < 10 (0-10) mg/dL Patient Problems - Patient Problem List (1) Migraine Current Visit: Yes Status: Resolved (2) Chronic pain syndrome Current Visit: Yes Status: Chronic (3) Fibromyalgia Current Visit: Yes Status: Chronic (4) COPD (chronic obstructive pulmonary disease) Current Visit: Yes Status: Chronic Qualifiers: COPD type: emphysema Emphysema type: panlobular Qualified Description: Panlobular emphysema Qualifier Code(s): (J43.1) Panlobular emphysema (5) Hypothyroidism Current Visit: Yes Status: Acute Qualifiers: Hypothyroidism type: acquired Qualified Description: Acquired hypothyroidism Qualifier Code(s): (E03.9) Hypothyroidism, unspecified
--- NOTE | 2017-06-20 10:22 | DI ---
XR ABDOMEN ACUTE 2/ABD 1/CXR,06/11/2017 1:08 PM: Clinical History: Persistent vomiting. Previous Exam: None at this facility. Findings: The lungs are clear. There is no subdiaphragmatic free air. A nonobstructive bowel gas pattern is seen. No pathologic calcifications are seen. There is a large amount of dried stool throughout the colon. Patient is status post cholecystectomy. Impression: No acute intra-abdominal pathology.
== END 2017-06-12 15:31 | disposition home or self-care (01) | DRG 102 ==
LOC: ER 12:32 → MED/SURG 15:24
PROVIDERS: ADMIT Family Medicine; ATTEND Family Medicine
DX: G43.909 Migraine, unspecified, not intractable, without status migrainosus (principal); K85.90 Acute pancreatitis without necrosis or infection, unspecified; K59.00 Constipation, unspecified; G89.4 Chronic pain syndrome; M79.7 Fibromyalgia; J44.9 Chronic obstructive pulmonary disease, unspecified; E03.9 Hypothyroidism, unspecified
CPT/HCPCS: 36415; 70450; 74022; 74177; 80053; 80320; 81001; 81003; 82977; 83690; 83735; 84439; 84443; 84478; 85025; 94761; 96361; 96374; 96375; 99285; J0780; J1100; J1200; J1885; J2060; J2270; J2405; J3010; J3475; J7030; J7120

== ENCOUNTER 2019-08-13 12:05 | Inpatient (IN) ==
[2019-08-13] MEDS ORDERED: MORPHINE SULFATE 4 MG/1 ML IVP ONE (12:48)
[2019-08-13] MEDS ORDERED: Sodium Chloride 0.9% 1,000 ML PRIMARY IV ONE (12:48)
[2019-08-13] MEDS ORDERED: ONDANSETRON 4 MG/2 ML VIAL IVP ONE (12:48)
[2019-08-13 13:30] LABS: Hematocrit [HCT] 46.7 % (37.0-47.0); Hemoglobin [HGB] 15.4 g/dL (12.0-16.0); MEAN CORPUSCULAR VOLUME 89.6 FL (81-99); RED BLOOD COUNT 5.21 10^6/uL (4.20-5.40)
[2019-08-13 13:31] LABS: BASOPHILS # (AUTO) 0.01 10*3/UL; BASOPHILS % (AUTO) 0.1 % (0-1); EOSINOPHILS # (AUTO) 0.06 10*3/UL; EOSINOPHILS % (AUTO) 0.4 % (0-8); LYMPHOCYTES # (AUTO) 3.91 10*3/uL; MEAN PLATELET VOLUME 10.1 FL (7.4-12.2); MONOCYTES # (AUTO) 1.05 10*3/UL (0.3-0.8); MONOCYTES % (AUTO) 7.6 % (5-15); NEUTROPHILS # (AUTO) 8.65 10*3/UL; PLATELET MORPHOLOGY COMMENT NORMAL MORPHOLOGY (NORM); RBC MORPHOLOGY COMMENT NORMAL MORPHOLOGY (NORM); WBC MORPHOLOGY COMMENT NORMAL MORPHOLOGY (NORM)
[2019-08-13 13:34] LABS: BILIRUBIN,URINE NEGATIVE (NEG); CLARITY,URINE Slightly Cloudy (CLEAR); GLUCOSE, URINE (UA) NEGATIVE (NEG); OCCULT BLOOD,URINE Trace-lysed (NEG); PH,URINE 5.5 (5.0-8.5); PROTEIN,URINE NEGATIVE (NEG); UROBILINOGEN,URINE 0.2 EU/dL (0.2)
[2019-08-13 13:37] LABS: COLOR,URINE DARK YELLOW (Y); RBC,URINE 0-1 /hpf; URINE SAMPLE TYPE CLEAN CATCH URINE
[2019-08-13 13:38] LABS: BACTERIA,URINE MODERATE; SQUAMOUS EPITHELIAL CELL,UR MODERATE
[2019-08-13 13:41] LABS: BLOOD UREA NITROGEN 10 mg/dL (7-22); BUN/CREATININE RATIO 14.28 (6-20); SERUM ALBUMIN 4.6 g/dL (3.5-4.8)
[2019-08-13 13:59] LABS: VENOUS PH 7.46 (7.32-7.42)
[2019-08-13 14:13] LABS: Erythrocyte Sediment Rate 14 MM/HR (0-20)
[2019-08-13] MEDS ORDERED: Ertapenem Inj 1 GM in Sodium Chloride 0.9% 100 ML IV ONE (15:22)
[2019-08-13] MEDS ORDERED: CYCLOBENZAPRINE 10 MG TABLET PO PRN (16:11)
[2019-08-13] MEDS ORDERED: ALBUTEROL SULFATE 8.5 GM HFA INHALER INH PRN (16:11)
[2019-08-13] MEDS ORDERED: MORPHINE SULFATE 2 MG/1 ML IVP PRN (16:11)
[2019-08-13] MEDS ORDERED: LIDOCAINE W/ SODIUM BICARB 0.5 ML SYR SUBD PRN (16:11)
[2019-08-13] MEDS: FLUTICASONE/SALMETEROL 500/50 UD INHALER INH SCH (16:59)
[2019-08-13] MEDS: Ertapenem Inj 1 GM in Sodium Chloride 0.9% 100 ML IV SCH (17:02)
[2019-08-13] MEDS: HEPARIN 5000 UNIT/1 ML SUBCUT SCH (17:03)
[2019-08-13] MEDS: GABAPENTIN 400 MG CAPSULE PO SCH ×2 (17:03→20:02)
[2019-08-13] MEDS: LITHIUM CARBONATE 300 MG CAPSULE PO SCH ×2 (17:03→20:03)
[2019-08-13] MEDS: 1/2NS + 20mEq KCL 1,000 ML PRIMARY IV SCH (17:03)
[2019-08-13] MEDS ORDERED: ACETAMINOPHEN 500 MG TABLET PO PRN (19:18)
[2019-08-13] MEDS: Montelukast Tab 10 MG TAB PO SCH (20:03)
[2019-08-13] MEDS: FAMOTIDINE 40 MG TABLET PO SCH (20:03)
[2019-08-13] MEDS: Zolpidem Tab 5 MG TAB PO PRN (20:06)
[2019-08-14] MEDS: HEPARIN 5000 UNIT/1 ML SUBCUT SCH ×3 (00:40→16:16)
[2019-08-14] MEDS: 1/2NS + 20mEq KCL 1,000 ML PRIMARY IV SCH ×2 (00:48→10:53)
[2019-08-14 04:51] LABS: BASOPHILS # (AUTO) 0.01 10*3/UL; BASOPHILS % (AUTO) 0.1 % (0-1); EOSINOPHILS # (AUTO) 0.08 10*3/UL; EOSINOPHILS % (AUTO) 0.9 % (0-8); Hematocrit [HCT] 42.5 % (37.0-47.0); Hemoglobin [HGB] 13.6 g/dL (12.0-16.0); LYMPHOCYTES # (AUTO) 1.74 10*3/uL; MEAN CORPUSCULAR VOLUME 91.8 FL (81-99); MEAN PLATELET VOLUME 10.6 FL (7.4-12.2); MONOCYTES # (AUTO) 0.72 10*3/UL (0.3-0.8); MONOCYTES % (AUTO) 8.5 % (5-15); NEUTROPHILS # (AUTO) 5.89 10*3/UL; NEUTROPHILS % (AUTO) 69.7 % (50-80); RED BLOOD COUNT 4.63 10^6/uL (4.20-5.40)
[2019-08-14 05:04] LABS: PLATELET MORPHOLOGY COMMENT NORMAL MORPHOLOGY (NORM); RBC MORPHOLOGY COMMENT NORMAL MORPHOLOGY (NORM); WBC MORPHOLOGY COMMENT NORMAL MORPHOLOGY (NORM)
[2019-08-14 05:10] LABS: BLOOD UREA NITROGEN 5 mg/dL (7-22); BUN/CREATININE RATIO 8.33 (6-20); SERUM ALBUMIN 3.9 g/dL (3.5-4.8)
[2019-08-14] MEDS: FLUTICASONE/SALMETEROL 500/50 UD INHALER INH SCH (06:40)
[2019-08-14] MEDS: HYDROcodone-APAP 5 MG -325 MG TABLET PO PRN ×3 (07:12→20:59)
[2019-08-14] MEDS: KETOROLAC 15 MG/1 ML VIAL IVP PRN ×2 (07:12→17:51)
[2019-08-14] MEDS: FLUoxetine 20 MG CAPSULE PO SCH (08:45)
[2019-08-14] MEDS: LITHIUM CARBONATE 300 MG CAPSULE PO SCH ×4 (08:45→21:00)
[2019-08-14] MEDS: GABAPENTIN 400 MG CAPSULE PO SCH ×3 (08:45→20:59)
[2019-08-14] MEDS: CHOLECALCIFEROL 1000 IU TABLET PO SCH (08:45)
[2019-08-14] MEDS: NICOTINE 21 MG /DAY PATCH TRANSDERM SCH (09:31)
[2019-08-14] MEDS: ALPRAZolam Tab 0.25 MG TABLET PO PRN ×2 (09:36→17:51)
[2019-08-14] MEDS: Ertapenem Inj 1 GM in Sodium Chloride 0.9% 100 ML IV SCH (16:16)
[2019-08-14] MEDS: Montelukast Tab 10 MG TAB PO SCH (20:59)
[2019-08-14] MEDS: Zolpidem Tab 5 MG TAB PO PRN (21:00)
[2019-08-14] MEDS: FAMOTIDINE 40 MG TABLET PO SCH (21:00)
[2019-08-15] MEDS: HEPARIN 5000 UNIT/1 ML SUBCUT SCH ×4 (00:10→16:49)
[2019-08-15] MEDS: FLUTICASONE/SALMETEROL 500/50 UD INHALER INH SCH (07:31)
[2019-08-15] MEDS: NICOTINE 21 MG /DAY PATCH TRANSDERM SCH (08:02)
[2019-08-15] MEDS: GABAPENTIN 400 MG CAPSULE PO SCH ×3 (08:03→21:37)
[2019-08-15] MEDS: FLUoxetine 20 MG CAPSULE PO SCH (08:04)
[2019-08-15] MEDS: CHOLECALCIFEROL 1000 IU TABLET PO SCH (08:04)
[2019-08-15] MEDS: LITHIUM CARBONATE 300 MG CAPSULE PO SCH ×4 (08:04→21:36)
[2019-08-15] MEDS: Sodium Chloride 0.9% 1,000 ML PRIMARY IV SCH ×2 (11:24→21:38)
[2019-08-15] MEDS: ALPRAZolam Tab 0.25 MG TABLET PO PRN (12:02)
[2019-08-15] MEDS: HYDROcodone-APAP 5 MG -325 MG TABLET PO PRN ×2 (12:03→18:42)
[2019-08-15] MEDS: Ertapenem Inj 1 GM in Sodium Chloride 0.9% 100 ML IV SCH (16:49)
[2019-08-15] MEDS: Zolpidem Tab 5 MG TAB PO PRN (21:36)
[2019-08-15] MEDS: Montelukast Tab 10 MG TAB PO SCH (21:37)
[2019-08-15] MEDS: FAMOTIDINE 40 MG TABLET PO SCH (21:37)
[2019-08-16] MEDS: HEPARIN 5000 UNIT/1 ML SUBCUT SCH ×2 (00:30→08:41)
[2019-08-16] MEDS: Sodium Chloride 0.9% 1,000 ML PRIMARY IV SCH (05:31)
[2019-08-16] MEDS: FLUTICASONE/SALMETEROL 500/50 UD INHALER INH SCH (08:05)
[2019-08-16 08:38] LABS: BASOPHILS # (AUTO) 0.01 10*3/UL; BASOPHILS % (AUTO) 0.2 % (0-1); EOSINOPHILS # (AUTO) 0.15 10*3/UL; EOSINOPHILS % (AUTO) 2.3 % (0-8); Hematocrit [HCT] 41.5 % (37.0-47.0); Hemoglobin [HGB] 13.3 g/dL (12.0-16.0); LYMPHOCYTES # (AUTO) 1.95 10*3/uL; MEAN CORPUSCULAR VOLUME 92.2 FL (81-99); MEAN PLATELET VOLUME 10.3 FL (7.4-12.2); MONOCYTES # (AUTO) 0.39 10*3/UL (0.3-0.8); MONOCYTES % (AUTO) 5.9 % (5-15); NEUTROPHILS # (AUTO) 4.15 10*3/UL; NEUTROPHILS % (AUTO) 62.1 % (50-80)
[2019-08-16 08:44] LABS: PLATELET MORPHOLOGY COMMENT NORMAL MORPHOLOGY (NORM); RBC MORPHOLOGY COMMENT NORMAL MORPHOLOGY (NORM); WBC MORPHOLOGY COMMENT NORMAL MORPHOLOGY (NORM)
[2019-08-16 08:56] LABS: BLOOD UREA NITROGEN 10 mg/dL (7-22); BUN/CREATININE RATIO 14.28 (6-20)
[2019-08-16] MEDS ORDERED: Patch Removal PATCH TRANSDERM SCH (09:00)
[2019-08-16] MEDS: NICOTINE 21 MG /DAY PATCH TRANSDERM SCH (09:02)
[2019-08-16] MEDS: CHOLECALCIFEROL 1000 IU TABLET PO SCH (09:03)
[2019-08-16] MEDS: FLUoxetine 20 MG CAPSULE PO SCH (09:03)
[2019-08-16] MEDS: GABAPENTIN 400 MG CAPSULE PO SCH (09:03)
[2019-08-16] MEDS: LITHIUM CARBONATE 300 MG CAPSULE PO SCH (09:03)
[2019-08-16] MEDS: HYDROcodone-APAP 5 MG -325 MG TABLET PO PRN (09:12)
[2019-08-16 12:06] VITALS: BP 125/75; RESP 17; TEMP 98.5; O2SAT 92
== END 2019-08-16 12:51 | disposition home or self-care (01) | DRG 392 ==
LOC: ER 12:05 → MED/SURG 15:56
PROVIDERS: ADMIT Internal Medicine; ATTEND Internal Medicine